=== PATIENT | male | born 2000 | race Caucasian/White ===

== ENCOUNTER 2022-06-16 10:31 | Emergency (ER) | payer OTHER ==
[2022-06-16 10:40] VITALS: BP 122/98
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
[2022-06-16] MEDS ORDERED: IBUPROFEN 600 MG TABLET PO STA (10:51)
[2022-06-16] MEDS ORDERED: ACETAMINOPHEN 325 MG TABLET PO STA (10:51)
--- NOTE | 2022-06-16 11:53 | XRAY Report ---
PROCEDURE: Shoulder 3 View RT INDICATIONS: fall to right; pain wrist and shoulder TECHNIQUE: 3 views of the shoulder were acquired. COMPARISON: None. FINDINGS: Bones: No fractures or dislocations. No suspicious bony lesions. Visualized ribs appear intact. Soft tissues: No suspicious soft tissue calcifications. IMPRESSION: No evidence acute bony abnormality of the right shoulder. If clinical suspicion and/or symptoms persist, further assessment with repeat plain films or advanced imaging (e.g., CT, MRI, or bone scan) may be helpful for further assessment. Reviewed by: Bautista Van MD on 06/16/2022 11:51 AM PST Approved by: Bautista Van MD on 06/16/2022 11:51 AM PST Station ID: [id number]
--- NOTE | 2022-06-16 11:53 | XRAY Report ---
PROCEDURE: Wrist 3 View RT INDICATIONS: fall to right/pain wrist and shoulder TECHNIQUE: 3 views of the wrist were acquired. COMPARISON: None FINDINGS: Bones: No fractures or dislocations. No suspicious bony lesions. Soft tissues: No suspicious soft tissue calcifications. IMPRESSION: No evidence acute bony abnormality of the right wrist. If clinical suspicion and/or symptoms persist, further assessment with repeat plain films or advanced imaging (e.g., CT, MRI, or bone scan) may be helpful for further assessment. Reviewed by: Bautista Van MD on 06/16/2022 11:52 AM PST Approved by: Bautista Van MD on 06/16/2022 11:52 AM PST Station ID: [id number]
== END 2022-06-16 12:16 | disposition home or self-care (01) ==
LOC: ED 10:31
DX: S63.501A Unspecified sprain of right wrist, initial encounter (principal); S46.911A Strain of unspecified muscle, fascia and tendon at shoulder and upper arm level, right arm, initial encounter; X58.XXXA Exposure to other specified factors, initial encounter; Y99.1 Military activity
CPT/HCPCS: 73030; 73110; 99283; 99284; A9270